=== PATIENT | female | born 1955 | race Caucasian/White ===

== ENCOUNTER → 2023-06-09 13:07 | Outpatient (REF) | payer MEDICARE, SELFPAY ==
[2023-06-09 15:51] LABS: % Basophils 0.6 % (0-2); % Immature Granulocytes 0.2 % (0-0.5); % Lymphocytes 32.7 % (20.5-51.1); % Neutrophils 54.5 % (42.2-75.2); Absolute Eosinophils 0.1 10^3/uL (0-0.7); Absolute Lymphocytes 1.6 10^3/uL (1.2-3.4); Absolute Monocytes 0.5 10^3/uL (0.1-0.6); Absolute Neutrophils 2.7 10^3/uL (1.4-6.5); Hemoglobin 12.8 g/dL (12.0-16.0); Mean Corp Hgb Conc. 33.7 g/dL (33.0-37.0); Mean Corpuscular Hgb 30.3 pg (27.0-31.0); Mean Corpuscular Volume 89.8 fL (81.0-99.0); Mean Platelet Volume 10.3 fL (7.4-10.4); Nucleated Red Blood Cells % 0 %; Platelet Count 300 10^3/uL (130-400); Red Blood Cell Count 4.23 10^6/uL (4.20-5.40); Red Cell Dist. Width 12.7 % (11.5-14.5); White Blood Cell Count 4.9 10^3/uL (4.8-10.8)
[2023-06-09 16:13] LABS: ALT (SGPT) 29 U/L (0-35); AST (SGOT) 33 U/L (14-36); Alkaline Phosphatase 80 U/L (38-126); Blood Urea Nitrogen 27 mg/dl (7-17); Calcium 8.9 mg/dl (8.4-10.2); Carbon Dioxide 29 mmol/L (22-30); Chloride 101 mmol/L (98-107); Glucose 95 mg/dl (70-99); Potassium 4.4 mmol/L (3.5-5.1); Sodium 134 mmol/L (135-145); Total Bilirubin 0.4 mg/dl (0.2-1.3); Total Protein 6.6 g/dl (6.3-8.2); eGFR > 60.00
[2023-06-09 16:28] LABS: Free T4 0.87 ng/dl (0.78-2.19); Vitamin D, 25-OH*** 37.7 ng/mL (30-80)
[2023-06-09 16:41] LABS: TSH 3.87 uIU/ml (0.47-4.68)
== END ==
LOC: HWRAD 13:07
PROVIDERS: ATTENDING PHYSICIAN Internal Medicine Rheumatology; FAMILY PHYSICIAN Physician Assistant
DX: F41.9 Anxiety disorder, unspecified (principal); M81.0 Age-related osteoporosis without current pathological fracture; K21.9 Gastro-esophageal reflux disease without esophagitis; E03.9 Hypothyroidism, unspecified; E55.9 Vitamin D deficiency, unspecified; Z79.899 Other long term (current) drug therapy
CPT/HCPCS: 36415; 77080; 80053; 82306; 84439; 84443; 85025

== ENCOUNTER → 2023-09-18 13:36 | Outpatient (REF) | payer MEDICARE, SELFPAY ==
[2023-09-18 15:02] LABS: ALT (SGPT) 22 U/L (0-35); AST (SGOT) 30 U/L (14-36); Albumin 4.4 g/dl (3.5-5.0); Alkaline Phosphatase 54 U/L (38-126); Blood Urea Nitrogen 26 mg/dl (7-17); Calcium 9.7 mg/dl (8.4-10.2); Carbon Dioxide 30 mmol/L (22-30); Chloride 101 mmol/L (98-107); Glucose 104 mg/dl (70-99); HDL Cholesterol 96 mg/dl; LDL Cholesterol, Calculated 121 mg/dl; Potassium 4.7 mmol/L (3.5-5.1); Sodium 138 mmol/L (135-145); Total Bilirubin 0.3 mg/dl (0.2-1.3); Total Cholesterol 227 mg/dl (50-199); Total Protein 7.1 g/dl (6.3-8.2); Triglyceride 54 mg/dl (10-149); Very Low Density Lipoprotein 10 mg/dl (0-30); eGFR > 60.00
== END ==
LOC: REG 13:36
PROVIDERS: ATTENDING PHYSICIAN Physician Assistant
DX: E78.00 Pure hypercholesterolemia, unspecified (principal); M81.0 Age-related osteoporosis without current pathological fracture; K21.9 Gastro-esophageal reflux disease without esophagitis; F41.9 Anxiety disorder, unspecified
CPT/HCPCS: 36415; 80053; 80061

== ENCOUNTER → 2024-03-12 07:04 | Outpatient (REF) | payer MEDICARE, SELFPAY | LOC: HWRAD 07:04 | PROVIDERS: ATTENDING PHYSICIAN Nurse Practitioner Family | DX: R10.9 Unspecified abdominal pain (principal) | CPT/HCPCS: 74176 ==

== ENCOUNTER → 2024-06-10 13:20 | Outpatient (REF) | payer MEDICARE, SELFPAY ==
[2024-06-10 15:21] LABS: Hematocrit 39.9 % (37.0-47.0); Hemoglobin 13.1 g/dL (12.0-16.0); Mean Corp Hgb Conc. 32.8 g/dL (33.0-37.0); Mean Corpuscular Hgb 29.8 pg (27.0-31.0); Mean Corpuscular Volume 90.7 fL (81.0-99.0); Mean Platelet Volume 9.8 fL (7.4-10.4); Platelet Count 257 10^3/uL (130-400); Red Cell Dist. Width 12.5 % (11.5-14.5); White Blood Cell Count 5.2 10^3/uL (4.8-10.8)
[2024-06-10 15:38] LABS: ALT (SGPT) 66 U/L (0-35); AST (SGOT) 38 U/L (14-36); Albumin 4.4 g/dl (3.5-5.0); Alkaline Phosphatase 45 U/L (38-126); Blood Urea Nitrogen 22 mg/dl (7-17); Calcium 9.4 mg/dl (8.4-10.2); Carbon Dioxide 30 mmol/L (22-30); Chloride 99 mmol/L (98-107); Glucose 76 mg/dl (70-99); Potassium 4.4 mmol/L (3.5-5.1); Sodium 135 mmol/L (135-145); Total Bilirubin 0.6 mg/dl (0.2-1.3); Total Protein 6.8 g/dl (6.3-8.2); eGFR > 60.00
[2024-06-10 15:48] LABS: % Basophils 0.8 % (0-2); % Eosinophils 1.9 % (0-6); % Immature Granulocytes 0.2 % (0-0.5); % Lymphocytes 48.5 % (20.5-51.1); % Neutrophils 39.6 % (42.2-75.2); Absolute Eosinophils 0.1 10^3/uL (0-0.7); Absolute Lymphocytes 2.5 10^3/uL (1.2-3.4); Absolute Monocytes 0.5 10^3/uL (0.1-0.6); Absolute Neutrophils 2.1 10^3/uL (1.4-6.5); Nucleated Red Blood Cells % 0 %
[2024-06-11 16:54] LABS: Free T4 0.77 ng/dl (0.78-2.19); Vitamin D, 25-OH*** 30.3 ng/mL (30-80)
[2024-06-11 17:08] LABS: TSH 7.49 uIU/ml (0.47-4.68)
== END ==
LOC: REG 13:20
PROVIDERS: ATTENDING PHYSICIAN Internal Medicine Rheumatology; FAMILY PHYSICIAN Family Medicine
DX: K21.9 Gastro-esophageal reflux disease without esophagitis (principal); M81.0 Age-related osteoporosis without current pathological fracture; F41.9 Anxiety disorder, unspecified; N20.0 Calculus of kidney; Z79.899 Other long term (current) drug therapy
CPT/HCPCS: 36415; 80053; 82306; 84439; 84443; 85025

== ENCOUNTER 2024-09-05 16:00 | Emergency (ER) | payer MEDICARE, SELFPAY ==
[2024-09-05 16:03] VITALS: BP 104/68
--- NOTE | 2024-09-05 19:25 | ED.GENMED ---
History of Present Illness
General
Chief Complaint: Back Pain
Source: patient
Time Seen by Provider: 09/05/24 19:07
History of Present Illness
History of Present Illness:
69-year-old female with past medical history of kidney stones status post kidney stent presenting to the emergency department for evaluation after she has been experiencing right-sided lower back pain for the last 5 days, stating she had done an
exercise that she had done before and believes this is what potentially caused the pain. Patient states pain is constant but seemingly much worse with attempted movement especially with forward bend.. She has attempted cyclobenzaprine and naproxen
with minimal relief. Patient concern for flareup of her kidney stones and contacted her primary care provider who had ordered a CT scan to be done as an outpatient however patient did not get the call or message that this was scheduled and
unfortunately missed her appointment which is why she presented to the ER tonight. Patient denies any urinary symptoms including frequency/urgency/dysuria or hematuria. No fevers or infectious symptoms. No other concerns. Patient does state that
the pain radiates to both sides of her lower back and somewhat into her right hip area.
Past History
Past History
ED Past Medical History: None
ED Past Surgical History: Gynecological, Tonsilectomy and Urological
Social History
Tobacco: Non-smoker
Alcohol: Occasional
Drug: None
Personal:
Living: with family
Review of Systems
Review of Systems
All Other Systems: ROS reviewed and negative except as documented in HPI and ROS
Phy Exam
Physical Exam
Physical Exam:
GENERAL: Alert , in no apparent distress
EYE: clear conjunctiva b/l
NECK: Supple
ENT: o/p clr, mmm.
CARDIAC: Regular rate and rhythm .
LUNGS: Clear breath sounds bilaterally, no acute respiratory distress, no wheezes/rales/rhonchi
ABDOMEN: Soft, without focal tenderness, no r/g, no cvat
BACK: Normal range of motion, clearly reproducible right paralumbar tenderness, no midline bony tenderness, no rashes
NEUROLOGICAL: Alert and oriented, no focal neuro deficits. Ambulates with steady gait
SKIN: Warm and dry, skin intact.
MUSCULOSKELETAL: No edema, well perfused
PSYCH: Normal and appropriate interaction.
Scores
Heart Failure Risk
Heart Failure Risk Score: Not Applicable
Heart Score for Chest Pain Patients
STEMI patient?: Not applicable
Withdrawal Assessment of Alcohol
Withdrawal Assessment Completed?: Not applicable
Course
Orders/Labs/Results
Orders:
Orders
09/05/24 19:24
Ketorolac [Toradol] 30 mg IV NOW STA
09/05/24 19:25
CT Abd/pel Without Iv Or Oral Urgent
Comment:
Reason For Exam: right flank pain
09/05/24 19:33
Complete Blood Count/With Diff Urgent
Comprehensive Metabolic Panel Urgent
09/05/24 19:49
Urinalysis Reflex To Culture Urgent
Date Specimen was Collected: 09/05/24
Time Specimen was Collected: 19:47
Urine Microscopic Reflex Cult Urgent
Abnormal Lab Results
09/05/24 09/05/24
19:33 19:49
Monocytes % 10.7 H %
(1.7-9.3)
BUN 19 H mg/dl
(7-17)
Ur Occult Blood Reflex 2+ A
(Negative)
Urine RBC 3-6 A /HPF
(0-2)
Urine Bacteria (Reflex) Few A
(Negative)
09/05/24 19:33
09/05/24 19:33
Vital Signs
Initial and Last Documented VS:
Initial Vital Signs
Temp Pulse Resp BP Pulse Ox
98.6 F 69 16 104/68 99
09/05/24 16:03 09/05/24 16:03 09/05/24 16:03 09/05/24 16:03 09/05/24 16:03
Last Documented Vital Signs
Temp Pulse Resp BP Pulse Ox
98.6 F 69 16 104/68 99
09/05/24 16:03 09/05/24 16:03 09/05/24 16:03 09/05/24 16:03 09/05/24 16:03
MDM/Problems Addressed
Differential Diagnosis Includes:
Lumbar strain, disc herniation/nerve impingement, renal/ureteral colic considered however much less likely given patient's pain is radiating to both sides of her back, I do not have concern for infectious etiology nor acute neurologic claudication
MDM/Problems Addressed:
69-year-old female presenting to the ER for evaluation of right-sided lower back pain that has been gradually worsening for 5 days. No relief with cyclobenzaprine and naproxen. Primary care provider requested a CT scan done at the [facility]
today however patient was unaware of this and got the message too late so decided come to the ER instead to obtain her imaging. Patient appears in no acute distress and is otherwise well-appearing. Given primary care wanted CT imaging will obtain
this as well as labs and urinalysis. Pain control with Toradol. Reassessment following.
*Radiology
Radiology exam reviewed: radiology read reviewed
*Pulse Oximetry
Patient hypoxic: no
*Critical Care Note
Total Time (30-74mins, 75-104mins- exclusive of procedures): Not Applicable
Patient Management
Escalation/DeEscalation of care consider admission/obs:
Patient CT scan is without any acute emergent pathologies. Patient was provided out with a printout of her CT scan report. Prescription for Medrol Dosepak sent to pharmacy. I am most suspicious that this is a muscular etiology and patient will
likely benefit from follow-up with primary care. She is aware of return precautions but at this time otherwise stable for discharge home.
ED Attending Note
-
Portions of this chart may have been created with voice recognition software.� Occasional wrong word or��sound alike� substitutions may have occurred due to the inherent limitations of voice recognition software.
Discharge Plan
Departure
Patient Disposition: Home (Routine Discharge)
Date of Disposition: 09/05/24
Time of Disposition: 21:00
Patient with high blood pressure during this ER visit?: No
Discharge Problem:
Dorsalgia
Instructions: Low Back Pain (DC)
Prescriptions:
New
methylprednisolone [Medrol (Ted)] 4 mg tablets,dose pack
4 mg PO DIRECTED Qty: 21 0RF
Referrals:
Vanna Lopez MD [Family Provider] -
Interventions
Interventions:
*Risk Screen - Suicide Last Done: 09/05/24 16:03
*General Assessment Last Done: 09/05/24 16:03
*Neglect/Abuse Screening Last Done: 09/05/24 19:59
*ED COVID-19 Vaccine History Last Done: 09/05/24 16:03
*Nursing Disposition Last Done: 09/05/24 21:07
ED-Musculoskeletal Assessment Last Done: 09/05/24 19:59
Discharge Date and Time
Discharge Date/Time: 09/05/24 21:35
Print Language: JORDANIAN
[2024-09-05] MEDS: TORADOL 30 MG IV (19:45)
[2024-09-05 19:59] LABS: Urine Albumin Negative (Neg - Trace); Urine Bilirubin Negative (Negative); Urine Character Clear (Clear); Urine Color Yellow; Urine Glucose Negative (Negative); Urine Ketone Negative (Negative); Urine Leukocyte Negative (Negative); Urine Nitrite Negative (Negative); Urine Occult Blood 2+ (Negative); Urine Urobilinogen Negative (Neg - 1+)
[2024-09-05 19:59] LABS: % Basophils 0.6 % (0-2); % Eosinophils 2.3 % (0-6); % Immature Granulocytes 0.2 % (0-0.5); % Lymphocytes 41.9 % (20.5-51.1); % Monocytes 10.7 % (1.7-9.3); % Neutrophils 44.3 % (42.2-75.2); Absolute Eosinophils 0.1 10^3/uL (0-0.7); Absolute Monocytes 0.5 10^3/uL (0.1-0.6); Absolute Neutrophils 2.1 10^3/uL (1.4-6.5); Hematocrit 39.2 % (37.0-47.0); Hemoglobin 13.1 g/dL (12.0-16.0); Mean Corp Hgb Conc. 33.4 g/dL (33.0-37.0); Mean Corpuscular Volume 89.7 fL (81.0-99.0); Mean Platelet Volume 9.8 fL (7.4-10.4); Nucleated Red Blood Cells % 0 %; Platelet Count 259 10^3/uL (130-400); Red Blood Cell Count 4.37 10^6/uL (4.20-5.40); Red Cell Dist. Width 12.4 % (11.5-14.5); White Blood Cell Count 4.8 10^3/uL (4.8-10.8)
[2024-09-05 20:12] LABS: Urine Bacteria Few (Negative); Urine White Cell 0-2 /HPF (0-5)
[2024-09-05 20:16] LABS: ALT (SGPT) 35 U/L (0-35); AST (SGOT) 26 U/L (14-36); Albumin 4.3 g/dl (3.5-5.0); Alkaline Phosphatase 40 U/L (38-126); Blood Urea Nitrogen 19 mg/dl (7-17); Calcium 9.2 mg/dl (8.4-10.2); Carbon Dioxide 30 mmol/L (22-30); Chloride 104 mmol/L (98-107); Glucose 84 mg/dl (70-99); Potassium 4.3 mmol/L (3.5-5.1); Sodium 138 mmol/L (135-145); Total Bilirubin 0.6 mg/dl (0.2-1.3); Total Protein 6.5 g/dl (6.3-8.2); eGFR > 60.00
== END 2024-09-05 21:35 | disposition home or self-care (01) ==
LOC: EMR 16:00
PROVIDERS: Physician Assistant Medical; EMERGENCY PHYSICIAN Emergency Medicine; FAMILY PHYSICIAN Family Medicine
DX: M54.50 Low back pain, unspecified (principal); Z87.442 Personal history of urinary calculi
CPT/HCPCS: 99284; 96374; 74176; 80053; 81003; 81015; 85025

== ENCOUNTER → 2024-09-19 06:39 | Outpatient (REF) | payer MEDICARE, SELFPAY | LOC: RAD 06:39 | PROVIDERS: ATTENDING PHYSICIAN Family Medicine; FAMILY PHYSICIAN Physician Assistant | DX: I70.0 Atherosclerosis of aorta (principal) | CPT/HCPCS: 76770 ==

== ENCOUNTER → 2025-01-16 08:31 | Outpatient (REF) | payer MEDICARE, SELFPAY | LOC: RAD 08:31 | PROVIDERS: ATTENDING PHYSICIAN Physician Assistant | DX: R16.0 Hepatomegaly, not elsewhere classified (principal) | CPT/HCPCS: 76700 ==